=== PATIENT | female | born 1990 | race African-American/Black ===

== ENCOUNTER 2022-06-26 08:15 | Inpatient (IN) | payer OTHER ==
[~2022-06-26] VITALS: Ht 162.6 cm; Wt 83.5 kg
[2022-07-06] MEDS ORDERED: OXYC1TAB9 PO (10:23)
[2022-07-06] MEDS ORDERED: KETO10TA2 PO (10:23)
== END 2022-07-06 15:57 | disposition home or self-care (01) | DRG 788 ==
LOC: EDSTATUS 08:15 → O/R 07-03 05:30 → OB/GYN 07-03 07:00
PROVIDERS: ADMIT Obstetrics & Gynecology; ATTEND Obstetrics & Gynecology
PROC: 4A1HXCZ Monitoring of Products of Conception, Cardiac Rate, External Approach (ICD-10-PCS; 2022-07-03)
PROC: 10D00Z1 Extraction of Products of Conception, Low, Open Approach (ICD-10-PCS; principal; 2022-07-03 07:00)
DX: O34.211 Maternal care for low transverse scar from previous cesarean delivery (principal); Z3A.39 39 weeks gestation of pregnancy; Z37.0 Single live birth; Z20.822 Contact with and (suspected) exposure to COVID-19